=== PATIENT | male | born 1970 | race Caucasian/White ===

== ENCOUNTER 2021-01-11 17:27 | Emergency (ER) | payer OTHER ==
[~2021-01-11] VITALS: Ht 175.3 cm; Wt 91.2 kg
[2021-01-11 17:33] VITALS: Ht 175.3 cm; Wt 91.2 kg
[2021-01-11 18:41] LABS: BASOPHIL % 0.3 % (0.2-1.5); PLATELET COUNT 163 x10^3mcL (152-348); RED CELL DISTRIBUTION WIDTH 13.1 % (12.1-16.2)
[2021-01-11 18:47] LABS: microscopic required? NO
[2021-01-11 18:52] LABS: urine erythrocyte NEGATIVE (NEGATIVE)
[2021-01-11 19:02] LABS: CALCIUM 9.2 mg/dL (8.5-10.1); CARBON DIOXIDE 33.2 mmol/L (21-32); CHLORIDE SERUM 104 mmol/L (98-107); CREATININE SERUM 1.2 mg/dL (0.7-1.3); GFR1 > 60 mL/min; GLUCOSE SERUM 122 mg/dL (74-106); POTASSIUM SERUM 3.7 mmol/L (3.5-5.1); SODIUM SERUM 142 mmol/L (136-145)
[2021-01-11 19:07] LABS: AMPHETAMINE QUAL UR NONE DETECTED (See below)
[2021-01-11 19:07] LABS: ALBUMIN 3.9 g/dL (3.4-5.0); ALKALINE PHOSPHATASE 128 U/L (46-116); ALT/SGPT 38 U/L (16-63); AST/SGOT 24 U/L (15-37); BILIRUBIN TOTAL 0.7 mg/dL (0.20-1.00); CHOLESTEROL 165 mg/dL (<200); HDL CHOLESTEROL 38 mg/dL (40-60); LIPASE 124 IU/L (73-393); TOTAL PROTEIN, SERUM 7.1 g/dL (6.4-8.2)
[2021-01-11 21:52] VITALS: BP 109/66
== END 2021-01-11 21:52 | disposition home or self-care (01) ==
LOC: ED 17:27
PROVIDERS: Emergency Medicine
DX: R07.89 Other chest pain (principal); Z20.822 Contact with and (suspected) exposure to COVID-19
CPT/HCPCS: 83880; U0003